=== PATIENT | female | born 1965 | race Caucasian/White ===

== ENCOUNTER 2022-07-23 14:13 | Emergency (ER) | payer OTHER ==
[~2022-07-23] VITALS: Ht 170.2 cm; Wt 81.6 kg
[2022-07-23 14:15] VITALS: BP_SYST 126
--- NOTE | 2022-07-23 14:15 | NUR ---
Patient triaged and placed in waiting room. VSS and patient appears in no acute distress at this time. Accompanied by SELF, awaiting available bed, and MD notified of need for MSE.
--- NOTE | 2022-07-23 14:25 | NUR ---
BROUGHT BACK TO [facility] AND REPORT GIVEN TO NURSE
--- NOTE | 2022-07-23 14:35 | NUR ---
DR ARROYO AT CHAIRSIDE FOR EVALUATION
--- NOTE | 2022-07-23 14:52 | NUR ---
LABS BEING DRAWN AT THIS TIME.
[2022-07-23 15:15] VITALS: BP_SYST 126
--- NOTE | 2022-07-23 15:15 | NUR ---
Patient given written and verbal discharge instructions and verbalizes understanding. ER MD discussed with patient the results and treatment provided. Patient in stable condition. ID arm band removed. NO Rx given. Patient educated on pain management and to follow up with PMD. Pain Scale 0/10. Opportunity for questions provided and answered. Medication side effect fact sheet provided.
[2022-07-24 10:07] LABS: HEPATITIS B CORE AB, IgM Negative (Negative); HEPATITIS B CORE AB, TOTAL Negative (Negative); HEPATITIS B SURFACE AG Negative (Negative); HEPATITIS C VIRUS AB Non Reactive (Non Reactive)
== END 2022-07-23 15:15 | disposition home or self-care (01) ==
LOC: SED 14:13
DX: S61.234A Puncture wound without foreign body of right ring finger without damage to nail, initial encounter (principal); Z79.899 Other long term (current) drug therapy; W46.1XXA Contact with contaminated hypodermic needle, initial encounter; Y93.89 Activity, other specified; Y92.89 Other specified places as the place of occurrence of the external cause; Y99.8 Other external cause status
CPT/HCPCS: 36415; 86704; 86705; 86706; 86803; 87340; 87536; 99283